=== PATIENT | male | born 1960 | race Caucasian/White ===

== ENCOUNTER 2021-01-05 15:52 | Observation (INO) ==
[2021-01-05] MEDS ORDERED: Acetaminophen 325 MG TABLET PO ONE (16:14)
[2021-01-05] MEDS ORDERED: *HR* Acetaminophen w/Cod 300-30 mg 1 TAB TABLET PO ONE (16:34)
[2021-01-05 16:46] LABS: Hematocrit 32.3 % (37.5-50.1); Hemoglobin 11.1 g/dL (12.9-16.9); Mean Corpuscular HGB Conc 34.4 g/dL (31.6-35.5); Mean Corpuscular Hemoglobin 31.6 pg (28.0-33.3); Mean Platelet Volume 8.4 fL (9.4-12.4); Platelet Count 320 K/mcL (140-400); Red Blood Count 3.51 M/mcL (4.19-5.50); Red Cell Distribution Width 13.5 % (11.5-14.5); White Blood Count 10.6 K/mcL (4.3-11.1)
[2021-01-05 16:51] LABS: Activated Partial Thrombo Time 29.1 Seconds (26.0-36.0); INR 1.1; Prothrombin Time 13.3 Seconds (9.4-12.1)
[2021-01-05 17:20] LABS: BUN/Creatinine Ratio 16 (6-26); Blood Urea Nitrogen 16 mg/dL (8-23); Calcium 9.8 mg/dL (8.6-10.3); Carbon Dioxide 24 mEq/L (23-29); Chloride 88 mEq/L (98-107); Eosinophils # 0.4 K/mcL (0.0-0.6); Glucose 101 mg/dL (70-105); Lymphocytes # 1.2 K/mcL (0.6-4.6); Monocytes # 0.7 K/mcL (0.0-1.3); Osmolality,Calculated 259 (280-300); Potassium 3.7 mEq/L (3.5-5.1); Reactive Lymphocytes Present (Not Present); Smudge Cells Present (Not Present); Sodium 124 mEq/L (136-145); Troponin I < 0.03 ng/mL (< 0.04); eGFR For African Americans > 60 (> 60); eGFR For Non-African Americans > 60 (> 60)
[2021-01-05 17:21] LABS: Platelet Estimate Normal (Normal)
[2021-01-05 17:22] LABS: Neutrophils # 8.1 K/mcL (1.6-8.9)
[2021-01-05] MEDS ORDERED: Naloxone 0.4 MG/ML INJ IVP PRN (17:39)
[2021-01-05] MEDS ORDERED: Ondansetron 4 MG/2 ML VIAL IVP PRN (17:39)
[2021-01-05] MEDS ORDERED: Acetaminophen 325 MG TABLET PO PRN (17:39)
[2021-01-05] MEDS: 0.9 % Sodium Chloride 1,000 ML IVC SCH (21:51)
[2021-01-05] MEDS: *HR* Heparin 5,000 UNIT/ML VIAL SQ SCH (21:52)
[2021-01-06] MEDS ORDERED: *HR* Acetaminophen w/Cod 300-30 mg 1 TAB TABLET PO ONE (04:27)
[2021-01-06] MEDS: 0.9 % Sodium Chloride 1,000 ML IVC SCH (04:48)
[2021-01-06 06:36] LABS: BUN/Creatinine Ratio 19 (6-26); Blood Urea Nitrogen 17 mg/dL (8-23); Calcium 9.3 mg/dL (8.6-10.3); Carbon Dioxide 26 mEq/L (23-29); Chloride 92 mEq/L (98-107); Glucose 86 mg/dL (70-105); Osmolality,Calculated 263 (280-300); Potassium 3.7 mEq/L (3.5-5.1); Sodium 126 mEq/L (136-145); eGFR For African Americans > 60 (> 60); eGFR For Non-African Americans > 60 (> 60)
[2021-01-06] MEDS: *HR* Heparin 5,000 UNIT/ML VIAL SQ SCH (06:39)
[2021-01-06] MEDS ORDERED: Aspirin 81 MG TAB.CHEW PO SCH (09:00)
[2021-01-06] MEDS ORDERED: *HR* FentaNYL (PF) 100 MCG/2 ML VIAL IVP PRN (09:35)
[2021-01-06] MEDS ORDERED: Ondansetron 4 MG/2 ML VIAL IVP PRN (09:35)
[2021-01-06] MEDS ORDERED: D5% in 0.9% NACL 1,000 ML IVC ONE (10:19)
[2021-01-06] MEDS ORDERED: Lidocaine -MPF 4% 5 ML AMPUL ONE (10:22)
[2021-01-06] MEDS ORDERED: *HR* FentaNYL (PF) 100 MCG/2 ML VIAL ONE (10:22)
[2021-01-06] MEDS ORDERED: Lidocaine -MPF 2% 2 ML VIAL ONE (10:22)
[2021-01-06] MEDS ORDERED: Ondansetron 4 MG/2 ML VIAL ONE (10:22)
[2021-01-06] MEDS ORDERED: *HR* Succinylcholine 200 MG/10 ML VIAL IVP ONE (10:22)
[2021-01-06] MEDS ORDERED: *HR* Propofol 200 MG/20 ML VIAL IVP ONE (10:22)
[2021-01-06] MEDS ORDERED: Dexamethasone 4 MG/ML VIAL ONE (10:22)
[2021-01-06] MEDS: 0.9 % Sodium Chloride 500 ML IVC SCH (10:26)
[2021-01-06] MEDS ORDERED: *HR* Midazolam HCl 2 MG/2 ML VIAL ONE (10:51)
[2021-01-06] MEDS ORDERED: *HR* EPINEPHrine 1 MG/10 ML SYRINGE INTRATRACH PRN (11:40)
[2021-01-06 15:27] LABS: Appearance of Body Fluid Cloudy (Clear); Volume of Body Fluid 20 mL
[2021-01-06] MEDS ORDERED: Gadolinium Contrast Agent (WT Based) IV PRN (16:43)
[2021-01-06] MEDS: *HR* Acetaminophen w/Cod 300-30 mg 1 TAB TABLET PO PRN ×2 (18:42→23:07)
[2021-01-06] MEDS: Nicotine 21 MG PATCH.TD24 TD SCH (20:30)
[2021-01-06] MEDS: ALPRAZolam 0.5 MG TABLET PO PRN (20:44)
[2021-01-07] MEDS: *HR* Acetaminophen w/Cod 300-30 mg 1 TAB TABLET PO PRN ×2 (04:10→10:29)
[2021-01-07] MEDS ORDERED: ALPRAZolam 0.5 MG TABLET PO ONE (04:24)
[2021-01-07 06:01] LABS: Hematocrit 31.6 % (37.5-50.1); Hemoglobin 10.6 g/dL (12.9-16.9); Mean Corpuscular HGB Conc 33.5 g/dL (31.6-35.5); Mean Corpuscular Hemoglobin 31.3 pg (28.0-33.3); Mean Corpuscular Volume 93.2 fL (83.0-100.0); Mean Platelet Volume 8.6 fL (9.4-12.4); Platelet Count 324 K/mcL (140-400); Red Blood Count 3.39 M/mcL (4.19-5.50); Red Cell Distribution Width 13.7 % (11.5-14.5); White Blood Count 9.3 K/mcL (4.3-11.1)
[2021-01-07 06:21] LABS: BUN/Creatinine Ratio 18 (6-26); Blood Urea Nitrogen 18 mg/dL (8-23); Calcium 9.6 mg/dL (8.6-10.3); Carbon Dioxide 25 mEq/L (23-29); Chloride 93 mEq/L (98-107); Glucose 110 mg/dL (70-105); Magnesium 1.5 mg/dL (1.6-2.6); Osmolality,Calculated 267 (280-300); Potassium 3.5 mEq/L (3.5-5.1); Sodium 127 mEq/L (136-145); eGFR For African Americans > 60 (> 60); eGFR For Non-African Americans > 60 (> 60)
[2021-01-07] MEDS: ALPRAZolam 0.5 MG TABLET PO PRN (10:28)
[2021-01-07] MEDS: Nicotine 21 MG PATCH.TD24 TD SCH (10:30)
[2021-01-07] MEDS: *HR* OxyCODONE Immed Rel 5 MG TABLET PO PRN ×3 (11:38→21:32)
[2021-01-07] MEDS ORDERED: Dexamethasone 4 MG/ML VIAL IVP ONE (11:45)
[2021-01-07] MEDS: Dexamethasone 4 MG/ML VIAL IVP SCH ×2 (16:14→23:16)
[2021-01-07] MEDS: 0.9 % Sodium Chloride 500 ML IVC SCH (21:25)
[2021-01-07 23:24] VITALS: BP 101/67
== END 2021-01-08 00:39 | disposition short-term general hospital (02) ==
LOC: EMEROOARM 15:52 → 3ANU 15:52
PROVIDERS: ADMIT Internal Medicine; ATTEND Internal Medicine